=== PATIENT | male | born 1960 | race Caucasian/White ===

== ENCOUNTER → 2021-10-27 10:15 | Outpatient (BNVA) | payer MEDICARE, MEDICAID, SELFPAY | PROVIDERS: PCP Internal Medicine; Visit Provider Urology | DX: N52.9 Male erectile dysfunction, unspecified (principal) | CPT/HCPCS: 99202 ==

== ENCOUNTER → 2021-12-29 10:30 | Outpatient (BNVA) | payer MEDICARE, MEDICAID, SELFPAY | PROVIDERS: PCP Internal Medicine; Visit Provider Urology | DX: T83.490A Other mechanical complication of implanted penile prosthesis, initial encounter (principal); N52.9 Male erectile dysfunction, unspecified | CPT/HCPCS: 99212 ==

== ENCOUNTER 2022-01-15 11:26 | Day surgery (SDC) | payer MEDICARE, MEDICAID, SELFPAY ==
[2022-01-08 15:29] VITALS: BMI 33.5
--- NOTE | 2022-01-12 13:08 | HO.ANESPROP2 ---
Documented by User: Anahi Logan NP 01/12/22 13:09 HPI - Anesthesia Eval Consult details Narrative: 61yo M for Penile Prosthesis pump revision [facility] Active Problems Active Problems: All Active Problems (Updated 01/08/22 @ 15:25 by Kelly Ramos RN) Erectile dysfunction (Acute) Malfunction of penile prosthesis (Acute) Past Medical History Medical History Elevated cholesterol History of rhabdomyolysis Surgical History Surgical History History of implantation of penile prosthesis History of lumbar discectomy Social History Social History (Updated 01/08/22 @ 15:26 by Kelly Ramos RN) Patient Tobacco Use Status: Never used Tobacco Are you DNR?: No Advance Directives: No Advance Directives Information Provided: Yes Nutrition Risks: No Nutritional Risk Meds Allergies Allergy/AdvReac Type Severity Reaction Status Date / Time Iodinated Contrast Media Allergy Severe HIVES, Verified 01/15/22 15:12 [IV CONTRAST] DIFFICULTY BREATHING morphine [MORPHINE] Allergy Severe AGITATION/V Verified 01/15/22 15:12 IOLENT milk [MILK] AdvReac Mild DIARRHEA Verified 01/15/22 15:12 Home Medications Medication Instructions Recorded Confirmed Last Taken Type cyclobenzaprine 10 mg tablet 10 mg PO TID 10/27/21 Unknown History ibuprofen 400 mg tablet 400 mg PO Q6H PRN 10/27/21 Unknown History Exam Exam Date and Time: January 12, 2022 1308 Height,Weight and Vital Signs: Height 5 ft 11 in Weight 108.976 kg Assessment and Plan Assessment Anesthesia Assessment: Chart Reviewed Documented by User: Rolly Robb MD 01/15/22 16:39 HPI - Anesthesia Eval Consult details Narrative: 61yo M for Penile Prosthesis pump revision elevated CPK at baseline after an episode of Rhabdomyolysis , unknown cause, has seen physicians at [facility] and [facility]. CPK levels being monitored atleast twice a year [facility] Past Medical History Medical History Elevated cholesterol History of rhabdomyolysis Functional capacity: independent ambulation Family History Family history of problems with anesthesia: No Surgical History Surgical History History of implantation of penile prosthesis History of lumbar discectomy History of Problems with Anesthesia: No Social History Social History (Updated 01/08/22 @ 15:26 by Kelly Ramos RN) Patient Tobacco Use Status: Never used Tobacco Are you DNR?: No Advance Directives: No Advance Directives Information Provided: Yes Nutrition Risks: No Nutritional Risk Meds Allergies Allergy/AdvReac Type Severity Reaction Status Date / Time Iodinated Contrast Media Allergy Severe HIVES, Verified 01/15/22 15:12 [IV CONTRAST] DIFFICULTY BREATHING morphine [MORPHINE] Allergy Severe AGITATION/V Verified 01/15/22 15:12 IOLENT milk [MILK] AdvReac Mild DIARRHEA Verified 01/15/22 15:12 Home Medications Medication Instructions Recorded Confirmed Last Taken Type cyclobenzaprine 10 mg tablet 10 mg PO TID 10/27/21 Unknown History ibuprofen 400 mg tablet 400 mg PO Q6H PRN 10/27/21 Unknown History Exam Airway Mallampati Class: III TM Dist: >3cm Neck ROM: Full Loose/Missing/Broken Teeth: Yes (Implants ) Heart: S1,S2 Lungs: b/l breath sounds Assessment and Plan Assessment Anesthesia Assessment: Anesthesia Plan Discussed Final Anesthetic Review Family History of Problems with Anesthesia: No History of Problems with Anesthesia: No NPO: Yes ASA Class: III Final Preanesthetic Review: Meds/Allgs Chart Reviewed, Consent Obtained/Reviewed and Anes Risks/Benef Reviewed Patient Risk: High Procedure Risk: Intermediate Anesthetic Plan Anesthetic Plan: GA Disposition: Standard PACU
[2022-01-15] VITALS (8 sets, daily range): BP systolic 121–141; BP diastolic 81–95; PULSE 51–62; RESP 12–18; TEMP 36.2–36.4; O2SAT 96–98; BMI 34.2
[2022-01-15] MEDS: Lactated Ringers 1,000 ML 100 ML IVCONT (14:43)
[2022-01-15] MEDS: vancomycin HCL 1,500 MG in 0.9 % Sodium Chloride 500 ML 333.33 MG IV (14:58)
--- NOTE | 2022-01-15 15:21 | MHC.SHP ---
Pre-Procedural Eval Section A Date of Service: 01/15/22 The patient is an INPATIENT: No Changes since office visit: No Cold of Flu in the past 2 weeks, No New Medical Problems, No Changes in Medication and No Patient answered all questions The History & Physical has been completed within 30 days and I have reviewed it.: Yes Section B Chief Complaint: ED Details of Present Illness: malfunction to penile prosthesis. Revision of penile pump Relevant Family History (Specify if Yes): No Relevant Social History: None Present Medications: see Short Stay Collaborative assessment Medical History: No relevant PMH History of Previous Operations: Relevant previous surgery/procedure and date(s) Allergies: Allergies Allergy/AdvReac Type Severity Reaction Status Date / Time Iodinated Contrast Media Allergy Severe HIVES, Verified 01/15/22 15:12 [IV CONTRAST] DIFFICULTY BREATHING morphine [MORPHINE] Allergy Severe AGITATION/V Verified 01/15/22 15:12 IOLENT milk [MILK] AdvReac Mild DIARRHEA Verified 01/15/22 15:12 Review of Systems Sugical H&P ROS: Negative: Constitution, Cardiovascular, Respiratory, Neurological, Psychiatric, Hem-Onc, Allergic/Immunologic, Gastrointestinal, Genitourinary, Musculoskeletal, Integumentary, Endocrine and Eyes/Ears/Nose/Throat Exam Surgical H&P Exam: Normal: HEENT, Normal: Heart, Normal: Lungs, Normal: Extremities, Normal: Abdomen, Normal: Skin and Normal: Neurological Plan Diagnosis/Plan: Unchanged ( penile prosthetic revision) I have reviewed the history and physical and performed a pertinent physical examination on my patient. No changes have occurred unless specified.
--- NOTE | 2022-01-15 16:58 | W.PM.OPN ---
Operative Note Operative Note Date of Service: 01/15/22 Narrative: PreOperative Diagnosis: malfunctioning penile prosthetic pump Post Operative Diagnosis: nonfunctioning penile prosthetic pump Procedure: replacement of penile prosthetic pump Surgeon: Dr Karan Burch Anesthesia: general Indications for procedure: penile prosthetic placed 2012. Over the past 12 months has developed male functional pump with auto inflation and failure to deflate. Plan for revision Procedure: After informed consent was verified the patient was brought to the operating room and placed in a supine position. Anesthesia was administered per protocol. antibiotics were per protocol with vancomycin and tobramycin. The patient was prepped and draped in sterile fashion. Safety pause time-out was performed. Tijerina catheter placed Midline incision at the penoscrotal junction was marked and local anesthetic infiltrated. Approximately 8 cm incision was made. Dissection was performed down to penile pump. The penile pump was Delivered. We had opened the tunica of the right testicular sac in fluid been drained. This was repaired with a running 3-0 Vicryl suture. the penile pump was then fully resected free from its reactive coding. The reactive coating was then isolated in dissection and removed. The pump itself was tested again. Was seen to not be deflating correctly. Clamps were placed with Rubber shods on each intervening inflow and outflow respectively. the pump was then removed. A new pump was brought onto the field. Excess tubing was removed after the pump was filled with injectable normal saline. Clamps were placed. Using the spiritzer each end was irrigated and the plastic Melody was placed. A straight join was then used and crimped in place making sure each end of the tubing was visible through the window of the attachment. Once all 3 had been placed the clamps were removed. The penile prosthetic was cycled and found to cycle in normal fashion. Was deflated. The reservoir was then tucked into and expanded scrotal sac. 3-0 Vicryl was used to close tissue over the top of the pump. 3-0 Vicryl was then used to reapproximate tissue of the incision. Incision was closed with interrupted 4-0 chromic sutures. Dressing was placed. He tolerated procedure well and was extubated in operating room transferred in stable condition to the recovery area. The Tijerina catheter was removed prior to extubation in had 350 cc of urine. Pathology: None Drains: none
[2022-01-15] MEDS: fentaNYL citrate/PF 100 MCG/2 ML VIAL 25 MCG IVPUSH (17:22)
[2022-01-15] MEDS: Acetaminophen 325 MG TABLET 650 MG PO (17:30)
== END 2022-01-15 18:03 | disposition home or self-care (01) ==
PROVIDERS: PCP Internal Medicine; Visit Provider Urology
PROC: (CPT 54410; principal; 2022-01-15 13:50)
DX: T83.490A Other mechanical complication of implanted penile prosthesis, initial encounter (principal); N52.9 Male erectile dysfunction, unspecified; Y73.2 Prosthetic and other implants, materials and accessory gastroenterology and urology devices associated with adverse incidents; Y92.9 Unspecified place or not applicable
CPT/HCPCS: 54410; C1813; J1100; J1580; J2250; J2370; J2405; J2795; J3010; J3260; J3370

== ENCOUNTER → 2022-03-07 11:26 | Outpatient (BNVA) | payer MEDICARE, MEDICAID, SELFPAY | PROVIDERS: PCP Internal Medicine; Visit Provider Urology | DX: T83.490D Other mechanical complication of implanted penile prosthesis, subsequent encounter (principal) | CPT/HCPCS: 99212 ==

== ENCOUNTER → 2022-09-11 10:35 | Outpatient (BNVA) | payer MEDICARE, MEDICAID, SELFPAY | PROVIDERS: PCP Internal Medicine; Visit Provider Urology | DX: N52.9 Male erectile dysfunction, unspecified (principal) | CPT/HCPCS: 99212 ==

== ENCOUNTER 2023-09-12 09:06 | Outpatient (AMB) | payer MEDICARE, MEDICAID, SELFPAY ==
--- NOTE | 2023-09-12 09:08 | A.OFFVIS_ITS ---
Intake Intake Visit Reasons: 1 yr follow up Allergies Iodinated Contrast Media [IV CONTRAST] Allergy (Severe, Verified 09/11/22 10:48) HIVES, DIFFICULTY BREATHING morphine [MORPHINE] Allergy (Severe, Verified 09/11/22 10:48) AGITATION/VIOLENT milk [MILK] Adverse Reaction (Mild, Verified 09/11/22 10:48) DIARRHEA HPI HPI Comments History of Present Illness Details Juvencio is a very pleasant male. He is a patient of Dr. Shea. He is seen for the following urologic conditions - erectile dysfunction Doing well post penile pump revision Minimal issues with urination Twelve month follow-up Erectile dysfunction Had penile prosthetic placed in 2012 Penile pump revision of bulb 2021 for lockout [facility] Medical History Elevated cholesterol History of rhabdomyolysis Surgical History History of implantation of penile prosthesis History of lumbar discectomy Social History Patient Tobacco Use Status: Never used Tobacco Review of Systems Const Denies chills and Denies fever(s) Card Reports no additional complaints and Denies syncope Resp Denies cough GI Denies abdominal pain and Denies heartburn Reports as per HPI and Denies change in libido Neuro Denies syncope Psych Denies change in libido Endo Denies change in libido Physical Exam Const General: cooperative, healthy appearing, comfortable and no acute distress Orientation/consciousness: patient oriented x3 HEENT Face and sinus: Yes normal facial exam Mouth: moist mucous membranes Neck Neck: Yes normal visual inspection, Yes full ROM and Yes trachea midline Chest Chest palpation & inspection: normal inspection of the chest Resp Effort & Inspection: normal respiratory effort, able to speak in complete sentences and no respiratory distress GI Inspection: Yes normal to inspection Back/Spine/Pelvis Cervical Spine: normal cervical lordosis Thoracic/Lumbar Spine: thoracic and lumbar spine normal to inspection Skin General skin exam: no rashes or lesions noted Neuro General: patient oriented x3, gait normal, tone normal and moves all extremities Extrem General: Yes normal to inspection and Yes capillary refill normal Assessment & Plan Assessment & Plan (1) Erectile dysfunction: Code(s): N52.9 - Male erectile dysfunction, unspecified Plan P.r.n. follow-up Patient Instructions: Imaging studies, laboratory and physical exam results were discussed and reviewed in detail. No major barriers to patient understanding were identified. An opportunity to ask questions regarding the treatment plan was provided. All questions were answered. The patient expressed understanding and agreement with the above treatment plan. The patient is aware they should contact our office by phone for worsening of their current condition or the appearance of new urologic symptoms. Compliance is encouraged with any medications and followup testing that is ordered. It is a privilege to participate in the urologic care of your patient. If you have any questions or concerns regarding treatment for the above conditions, or other urologic issues, please do not hesitate to contact me. The office telephone contact is [phone]. This note is constructed using voice recognition software. While every effort has been made to ensure accuracy white metal caster errors may have been included. Yours sincerely, Dr Karan Burch MD, [facility] Providers of Expert, Compassionate Care for the Genitourinary System Coding Level of Care Code Est Pt Level 4 (75692) Diagnoses Erectile dysfunction N52.9
== END 2023-09-12 09:44 | disposition home or self-care (01) ==
PROVIDERS: Visit Provider Urology
DX: N52.9 Male erectile dysfunction, unspecified (principal)
CPT/HCPCS: 99213

== ENCOUNTER → 2023-09-12 09:06 | Outpatient (BNVA) | payer MEDICARE, MEDICAID, SELFPAY | PROVIDERS: Visit Provider Urology | DX: N52.9 Male erectile dysfunction, unspecified (principal) | CPT/HCPCS: 99212 ==